=== PATIENT | male | born 1975 ===

== ENCOUNTER 2021-01-04 18:01 | Observation (INO) | payer BC ==
[2021-01-04 18:44] VITALS: BMI 35.7
[2021-01-04] MEDS ORDERED: MELATONIN 5 MG TABLET PO PRN (19:01)
[2021-01-04] MEDS ORDERED: HYDROCODONE/APAP 5/325 MG TAB PO PRN (19:01)
[2021-01-04] MEDS ORDERED: ONDANSETRON 4 MG (ODT) TAB PO PRN (19:01)
--- NOTE | 2021-01-04 19:09 | P.HP ---
Certification for Inpatient Patient admitted to: Observation With expected LOS: <2 Midnights Patient will require the following post-hospital care: None Practitioner: I am a practitioner with admitting privileges, knowledge of patient current condition, hospital course, and medical plan of care. Services: Services provided to patient in accordance with Admission requirements found in Title 42 Section 412.3 of the Code of Federal Regulations Patient History Date of Service: 01/04/21 Primary Care Provider: Dr. Rodriguez Reason for admission: Bilateral PE, DVT History of Present Illness: 45-year-old otherwise healthy male presented to stand-alone emergency department for right lower extremity swelling and shortness of breath. Patient reports he been having dyspnea on exertion for 8 to 9 months, patient reports that he started testosterone a few weeks prior to noticing this starting. He noticed swelling in the right lower extremity just this morning. Patient was evaluated at stand-alone emergency department found to have right popliteal DVT and bilateral pulmonary embolism particularly involving the lower lobes. His labs were unremarkable, patient is on room air and in no distress at this time. Patient was transferred here for further evaluation and management of right lower extremity DVT and bilateral PE. Allergies No Known Allergies Allergy (Unverified 01/04/21 19:04) Home Medications: NK [No Home Meds] 01/04/21 - Past Medical/Surgical History Has patient received pneumonia vaccine in the past: No Diabetic: No -: None -: None Psychosocial/ Personal History: Lives at home with his family - Family History Mother -: Cancer Father Notes: Had PE likely secondary to Covid - Social History Smoking Status: Never smoker Alcohol use: Yes CD- Drugs: No Caffeine use: No Place of Residence: Home Review of Systems 10-point ROS is otherwise unremarkable Respiratory: Shortness of Breath, SOB with Excertion Physical Examination - Physical Exam General: Alert, In no apparent distress, Oriented x3 HEENT: Atraumatic, PERRLA, Mucous membr. moist/pink, EOMI, Sclerae nonicteric Neck: Supple, 2+ carotid pulse no bruit, No LAD, Without JVD or thyroid abnormality Respiratory: Clear to auscultation bilaterally, Normal air movement Cardiovascular: Regular rate/rhythm, Normal S1 S2 Gastrointestinal: Normal bowel sounds, No tenderness Musculoskeletal: No tenderness Integumentary: No rashes Neurological: Normal gait, Normal speech, Normal strength at 5/5 x4 extr, Normal tone, Normal affect Lymphatics: No axilla or inguinal lymphadenopathy Assessment and Plan - Plan Assessment: Dyspnea on exertion secondary to bilateral PE, right lower extremity popliteal DVT Plan: Dyspnea on exertion secondary to bilateral PE, right lower extremity popliteal DVT: Full dose Lovenox, patient was given dose at stand-alone emergency department continue next dose starting in the morning. Monitor on telemetry, echocardiogram ordered, pulmonology consulted. Anticipate discharge tomorrow on oral anticoagulation. DVT PPX: Full dose Lovenox Code status: Full Discharge Plan: Home Plan to discharge in: 24 Hours - Advance Directives Does patient have a Living Will: No Does patient have a Durable POA for Healthcare: No - Code Status/Comfort Care Code Status Assessed: Yes (Full code) Critical Care: No Time Spent Managing Pts Care (In Minutes): 55
[2021-01-04 21:39] LABS: Urine Appearance CLEAR (Clear); Urine Bilirubin NEGATIVE (Negative); Urine Blood NEGATIVE (Negative); Urine Color YELLOW (Yellow); Urine Glucose NEGATIVE (Negative); Urine Protein NEGATIVE (Negative); Urine Specific Gravity >=1.030 (1.005-1.030); Urine Urobilinogen 0.2 mg/dL (0.2-1.0); Urine pH 5.5 (5.0-7.0)
[2021-01-04 21:42] LABS: Urine Microscopic Reflex NO UMIC
[2021-01-05 04:11] LABS: Absolute Lymphocytes (CBC) 2.2 K/uL (0.7-4.9); Basophils % 0.5 % (0-1.3); Lymphocytes % 30.3 % (15.3-44.8); MPV 9.5 fL (7.6-11.3); RBC Red Blood Cell Count 4.94 M/uL (4.33-5.43)
[2021-01-05 04:13] VITALS: BP 151/91; O2SAT 97
[2021-01-05 04:25] LABS: Albumin 3.7 g/dL (3.4-5.0); Bilirubin Total 0.4 mg/dL (0.2-1.0); Protein, Total 7.1 g/dL (6.4-8.2)
[2021-01-05 04:26] LABS: Potassium 4.2 mmol/L (3.5-5.1)
--- NOTE | 2021-01-05 06:11 | P.DS ---
Admission Date: 01/04/21 Discharge Date: 01/05/21 Primary Care Provider: Dr. Rodriguez Disposition: ROUTINE DISCHARGE Discharge Condition: GOOD Reason for Admission: Bilateral PE, DVT Consultations: Pulmonary-Dr. Johnson Procedures: COVID: Negative ECHO: pending Medical Problem List: Dyspnea on exertion secondary to bilateral pulmonary emboli with right lower extremity popliteal DVT Elevated blood pressure without hypertension Brief History of Present Illness: 45-year-old otherwise healthy male presented to stand-alone emergency department for right lower extremity swelling and shortness of breath. Patient reports he been having dyspnea on exertion for 8 to 9 months. Patient had started testosterone a few weeks ago. That is when he noticed increased welling to the right lower extremity. Patient was seen at the emergency department. Patient was found to have right popliteal DVT with bilateral pulmonary emboli. Patient was transferred to the hospital for further evaluation and treatment. Hospital Course: Patient presented with dyspnea and right lower extremity pain. [facility] He was found to have a right lower extremity popliteal DVT with bilateral pulmonary emboli. Patient was transferred to our facility to further evaluate and treat. Patient received Lovenox with improvement. Patient seen by pulmonology. DVT and pulmonary emboli likely provoked from recent testosterone use. This has been discontinued. Genetic work-up for hypercoagulable state pending at discharge. This can be followed up as an outpatient. Echocardiogram obtained. At discharge the patient will continue with Xarelto 15 mg twice daily with food for 21 days then 20 mg daily with food. Patient will likely continue with treatment for 3 to 6 months. Recommend follow-up with pulmonology within 1 week to further monitor and address medication. Education on pulmonary embolism and DVT provided. Recommend to discontinue testosterone. Patient may need to limit his activities. Precautions provided. Return to work after 1 week. Return to significant activity likely in 2 weeks or as per recommendation by pulmonology. Education on Xarelto provided. Patient with elevated blood pressure. This can be monitored closely. Recommend to keep a log of his blood pressures. If blood pressures remain elevated greater than 140/90 on a consistent basis(greater than 3 days), patient may require medication for hypertension. This can be further addressed by pulmonology and his PCP. Vital Signs/Physical Exam: Temp Pulse Resp BP Pulse Ox 87 F L 54 17 151/91 H 96 01/05/21 04:00 01/05/21 04:00 01/05/21 04:00 01/05/21 04:00 01/04/21 23:59 General: Alert, In no apparent distress, Oriented x3, Cooperative HEENT: Atraumatic Neck: Supple Respiratory: Clear to auscultation bilaterally, Normal air movement Cardiovascular: Normal pulses, Regular rate/rhythm Gastrointestinal: Normal bowel sounds, No ascites, No tenderness, No masses, No rebound, No guarding Musculoskeletal: No erythema, No tenderness, No warmth Integumentary: No tenderness/swelling Neurological: Normal speech, Normal strength at 5/5 x4 extr, Normal tone Laboratory Data at Discharge: WBC 7.30 K/uL (4.3-10.9) 01/05/21 03:17 Hgb 14.8 g/dL (13.6-17.9) 01/05/21 03:17 Hct 42.0 % (39.6-49.0) 01/05/21 03:17 Plt Count 177 K/uL (152-406) 01/05/21 03:17 Sodium 143 mmol/L (136-145) 01/05/21 03:17 Potassium 4.2 mmol/L (3.5-5.1) 01/05/21 03:17 BUN 16 mg/dL (7-18) 01/05/21 03:17 Creatinine 1.25 mg/dL (0.55-1.3) 01/05/21 03:17 Glucose 124 mg/dL (74-106) H 01/05/21 03:17 Total Bilirubin 0.4 mg/dL (0.2-1.0) 01/05/21 03:17 AST 26 U/L (15-37) 01/05/21 03:17 ALT 41 U/L (12-78) 01/05/21 03:17 Alkaline Phosphatase 77 U/L (45-117) 01/05/21 03:17 Home Medications: Rivaroxaban [Xarelto*] 15 mg PO BID #42 tablet 01/05/21 New Medications: Rivaroxaban [Xarelto*] 15 mg PO BID #42 tablet Physician Discharge Instructions: Patient presented with dyspnea and right lower extremity pain. [facility] He was found to have a right lower extremity popliteal DVT with bilateral pulmonary emboli. Patient was transferred to our facility to further evaluate and treat. Patient received Lovenox with improvement. Patient seen by pulmonology. DVT and pulmonary emboli likely provoked from recent testosterone use. This has been discontinued. Genetic work-up for hypercoagulable state pending at discharge. This can be followed up as an outpatient. Echocardiogram obtained. At discharge the patient will continue with Xarelto 15 mg twice daily with food for 21 days then 20 mg daily with food. Patient will likely continue with treatment for 3 to 6 months. Recommend follow-up with pulmonology within 1 week to further monitor and address medication. Education on pulmonary embolism and DVT provided. Recommend to discontinue testosterone. Patient may need to limit his activities. Precautions provided. Return to work after 1 week. Return to significant activity likely in 2 weeks or as per recommendation by pulmonology. Education on Xarelto provided. Patient with elevated blood pressure. This can be monitored closely. Recommend to keep a log of his blood pressures. If blood pressures remain elevated greater than 140/90 on a consistent basis(greater than 3 days), patient may require medication for hypertension. This can be further addressed by pulmonology and his PCP. Diet: AHA Activity: Ad tom Time spent managing pt's care (in minutes): 55
[2021-01-05 08:56] VITALS: TEMP 97.5
[2021-01-05] MEDS ORDERED: Enoxaparin 120 MG/0.8 ML SYR SQ SCH (09:00)
[2021-01-05] MEDS ORDERED: RIVAROXABAN 15 MG TABLET PO SCH (09:00)
--- NOTE | 2021-01-05 12:38 | P.CNS ---
Date of Consult: 01/05/21 Reason for Consult: DVT and PE Primary Care Provider: Dr. Rodriguez Chief Complaint: Bilateral PE, DVT History of Present Illness: Pt is 45 yrs AW R sided DVT and PE, Recetn selling of R leg/ Started on testosterone Tx 7 months. C/o SOBOE past 6-7 months, Dx with COVID 1 month ago, [facility] Swelling has reduced in the R leg Allergies No Known Allergies Allergy (Unverified 01/04/21 19:04) Home Medications: Rivaroxaban [Xarelto*] 15 mg PO BID #42 tablet 01/05/21 - Past Medical/Surgical History Diabetic: No -: None -: None Psychosocial/ Personal History: Lives at home with his family - Family History Mother Medical History: Cancer Father Notes: Had PE likely secondary to Covid - Social History Alcohol use: Yes CD- Drugs: No Caffeine use: No Place of Residence: Home Review of Systems 10-point ROS is otherwise unremarkable Physical Examination Temp Pulse Resp BP Pulse Ox 97.5 F 53 18 151/91 H 97 01/05/21 08:00 01/05/21 08:00 01/05/21 08:00 01/05/21 08:00 01/05/21 08:00 General: Alert, Oriented x3 Neck: Supple Respiratory: Clear to auscultation bilaterally Cardiovascular: No edema, Regular rate/rhythm, Normal S1 S2 Laboratory Data (last 24 hrs) 01/05/21 03:17: Sodium 143, Potassium 4.2, BUN 16, Creatinine 1.25, Glucose 124 H, Total Bilirubin 0.4, AST 26, ALT 41, Alkaline Phosphatase 77 01/05/21 03:17: WBC 7.30, Hgb 14.8, Hct 42.0, Plt Count 177 - Problems (1) Pulmonary embolism Status: Acute Plan: Age 45 AWDVT and PE, Dx at [facility], [facility]. Was on testorone Tx started 7 months ago, SOBOE past 7 months, COVID 1 monthago, Hemodynamically stable O2 satisfactory. plan to DC home on Xarelto full dose anticoagulation. hypercoagulable Brock/ Labs reviewed/ BP mild increase/ F/u in my clinic 2-4 wks/ Advsied to stop all hormone TX, Duration minimla 3 months for now Qualifiers: Acute cor pulmonale presence: unspecified
[2021-01-08 11:19] LABS: Protein C Antigen 122 % (70-140)
[2021-01-10 20:43] LABS: Prothrombin Gene Analysis Test NEGATIVE
== END 2021-01-05 10:55 | disposition home or self-care (01) ==
LOC: 4TH 18:05
PROVIDERS: ADMIT Family Medicine; ATTEND Family Medicine
DX: I26.09 Other pulmonary embolism with acute cor pulmonale (principal); I82.431 Acute embolism and thrombosis of right popliteal vein; R03.0 Elevated blood-pressure reading, without diagnosis of hypertension; Z86.16 Personal history of COVID-19; Z20.822 Contact with and (suspected) exposure to COVID-19; Z80.9 Family history of malignant neoplasm, unspecified
CPT/HCPCS: 85025; 36415; 81003; 80053; 81241; 81240; 85301; 85302; 85305; 85306; G0379; G0378 ×2